=== PATIENT | male | born 1945 | race Caucasian/White ===

== ENCOUNTER → 2017-01-22 | Outpatient (CLI) | payer MEDICARE ==
[~2017-01-22] MED LIST: ATOR40TA49 PO; MELA1CAP PO; METO25CR PO; PROT40TA PO; ST JTAB PO; TAB-TAB PO; VALA500 PO; VITA400C28 PO
[2017-01-22 10:22] LABS: ANION GAP 5 MEQ/L (5-15); AST (GOT) 17 U/L (15-37); BICARBONATE 29.1 MEQ/L (21.0-32.0); BLOOD UREA NITROGEN 22 MG/DL (7-18); CHLORIDE 106 MEQ/L (98-107); GLOMERULAR FILTRATION RATE 74 ML/MIN (>89); GLUCOSE,FASTING 90 MG/DL (74-99); SODIUM (NA) 140 MEQ/L (136-145)
[2017-01-22 10:26] LABS: ALKALINE PHOSPHATASE 83 U/L (45-117); ALT (GPT) 22 U/L (12-78); HDL CHOLESTEROL 50.3 MG/DL (40.0-60.0); LDL CHOLESTEROL 54 MG/DL (0-99); TOTAL BILIRUBIN ADULT 0.8 MG/DL (0.2-1.0)
[2017-01-22 10:30] LABS: CREATINE KINASE 61 U/L (39-308)
== END ==
LOC: CLAB 08:18
PROVIDERS: ATTEND Specialist
DX: E78.2 Mixed hyperlipidemia (principal); Z12.5 Encounter for screening for malignant neoplasm of prostate
CPT/HCPCS: 36415; 80053; 80061; 82550; G0103